=== PATIENT | female | born 1985 | race Hispanic/Latino ===

== ENCOUNTER 2020-01-30 16:16 | Emergency (ER) | payer OTHER ==
[~2020-01-30] VITALS: Ht 157.5 cm; Wt 96.2 kg
--- NOTE | 2020-01-30 17:53 | Diagnostic Imaging Report ---
EXAMINATION: CXR 2 VIEW - HOPD INDICATION: ^CP ^[id number] ^[id number] COMPARISON: None FINDINGS: PA and lateral views TUBES and LINES: None. LUNGS: Lungs are well inflated. There is no evidence of pneumonia or pulmonary edema. PLEURA: No pleural effusion or pneumothorax. HEART AND MEDIASTINUM: The cardiomediastinal silhouette is unremarkable. BONES AND SOFT TISSUES: No acute osseous lesion. Soft tissues are unremarkable. UPPER ABDOMEN: No free air under the diaphragm. IMPRESSION: No acute thoracic abnormality. Signed by: Dr. Paul George MD on 01/30/2020 5:50 PM
[2020-01-30] MEDS ORDERED: PREDNISONE20 MG PO (17:55)
[2020-01-30] MEDS ORDERED: CYCLOBENZAPRINE5 MG PO (17:55)
--- NOTE | 2020-01-30 17:56 | Emergency Department Note ---
History of Present Illnes History of Present Illness Chief Complaint: Chest Pain History of Present Illness This is a 34 year old female. was doing well prior to this. then after doing yard work 2 weeks ago pt started to have rgt sided cp intermittently. pt is under alot of family stress. 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 Onset (how long ago): week(s) (2) Location: right side Quality: sharp Radiation: Reports non-radiation Severity: moderate Duration (how long): day(s) Timing of current episode: intermittent Progression: unchanged Chronicity: new Context: Denies recent illness, Denies recent surgery, Denies recent immobilization, Denies recent travel, Denies trauma/injury, Denies new medications, Denies hx of DVT/PE, Denies non-compliance w/ medications Relieving factors: none Exacerbating factors: none Associated symptoms: Reports denies other symptoms Treatments prior to arrival: none Past Medical/Family History Physician Review I have reviewed the patient's past medical and family history. Any updates have been documented here. Past Medical History Recent Fever: No Clinical Suspicion of Infectio: No New/Unexplained Change in Ment: No Past Medical History: None Past Surgical History: None Social History Smoking Cessation: Never Smoker Counseling Performed: No Alcohol Use: Occasional Any Illegal Drug Use: No Other Any Pre-Existing Lines (PICC,: No Review of Systems Review of Systems Constitutional: Reports no symptoms EENTM: Reports no symptoms Cardiovascular: Reports as per HPI Respiratory: Reports no symptoms Gastrointestinal: Reports no symptoms Genitourinary: Reports no symptoms Musculoskeletal: Reports no symptoms Integumentary: Reports no symptoms Neurological: Reports no symptoms Psychological: Reports no symptoms Endocrine: Reports no symptoms Hematological/Lymphatic: Reports no symptoms Review of other systems: All other systems negative Physical Exam Related Data Allergies: Coded Allergies: No Known Allergies (Unverified , 01/30/20) Triage Vital Signs Vital Signs Date Time Temp Pulse Resp B/P (MAP) Pulse Ox O2 Delivery O2 Flow Rate FiO2 01/30/20 16:35 98.7 98 18 160/91 99 Vital signs reviewed: Yes Physical Exam CONSTITUTIONAL Constitutional: Present well-developed, Present well-nourished HENT HENT: Present normocephalic, Present atraumatic, Present oropharynx clear/ moist, Present nose normal HENT L/R: Present left ext ear normal, Present right ext ear normal EYES Eyes: Reports PERRL, Reports conjunctivae normal NECK Neck: Present ROM normal PULMONARY Pulmonary: Present effort normal, Present breath sounds normal CARDIOVASCULAR Cardiovascular: Present regular rhythm, Present heart sounds normal, Present capillary refill normal, Present normal rate GASTROINTESTINAL Abdominal: Present soft, Present nontender, Present bowel sounds normal GENITOURINARY Genitourinary: Present exam deferred SKIN Skin: Present warm, Present dry MUSCULOSKELETAL Musculoskeletal: Present ROM normal NEUROLOGICAL Neurological: Present alert, Present oriented x 3, Present no gross motor or sensory deficits PSYCHOLOGICAL Psychological: Present mood/affect normal, Present judgement normal Results Imaging Imaging results reviewed: Yes Impressions cxr= normal Diagnostics Tests Diagnostic comments ekg nsr, hr=85, normal axis, normal st segments, nonspecific t waves Assessment & Plan Medical Decision Making MDM take rxed drugs Assessment & Plan Final Impression: (1) Acute chest pain (2) Stress reaction Depart Disposition: HOME, SELF-CARE Last Vital Signs Date Time Temp Pulse Resp B/P (MAP) Pulse Ox O2 Delivery O2 Flow Rate FiO2 01/30/20 16:35 98.7 98 18 160/91 99 Home Meds Active Scripts Cyclobenzaprine Hcl (FLEXERIL) 5 Mg Tablet, 10 MG PO Q8H PRN for MODERATE PAIN (4-6), #30 TAB take after prednisone to control pain if need be Prov:MAGGI POSEY 01/30/20 Prednisone (PREDNISONE) 20 Mg Tab, 60 MG PO DAILY PRN for MODERATE PAIN (4-6), #15 TAB Prov:MAGGI POSEY 01/30/20 MAGGI POSEY Jan 30, 2020 17:55
== END 2020-01-30 17:58 | disposition home or self-care (01) ==
LOC: FSED 16:45
DX: R07.89 Other chest pain (principal); F43.9 Reaction to severe stress, unspecified
CPT/HCPCS: 71046; 93005; 99282